=== PATIENT | female | born 1960 | race Caucasian/White ===

== ENCOUNTER → 2021-02-21 | Outpatient (CLI) | payer OTHER ==
--- NOTE | 2021-02-21 10:33 | RAD ---
EXAM: Abdomen sonogram. HISTORY: Right upper quadrant pain. TECHNIQUE: Sonographic imaging of the abdomen was performed. COMPARISON: None. FINDINGS: The liver is normal in size. No focal hepatic lesion is seen. The gallbladder is unremarkab le. The common bile duct is normal in caliber. The right kidney, pancreas and inferior vena cava are unremarkable. The aorta is not assessed. IMPRESSION: No acute sonographic finding. Electronically signed by: Elena Pugh MD (02/21/2021 10:31 AM) [id number]
== END ==
LOC: US 08:30
PROVIDERS: ATTEND Family Medicine
DX: R10.11 Right upper quadrant pain (principal)
CPT/HCPCS: 76705